=== PATIENT | female | born 2000 | race Two or more races ===

== ENCOUNTER 2023-06-30 11:42 | Emergency (ER) | payer OTHER ==
[~2023-06-30] VITALS: Ht 157.5 cm; Wt 61.8 kg
[2023-06-30 12:55] VITALS: BP 122/87; PULSE 71; RESP 18; O2SAT 99
[2023-06-30] MEDS ORDERED: NAPR-746 PO (13:14)
[2023-06-30 13:31] VITALS: TEMP 97.6
[2023-06-30] MEDS: IBUPROFEN 600 MG TAB PO ONE (13:31)
== END 2023-06-30 13:32 | disposition home or self-care (01) ==
LOC: ER 11:42
DX: M77.8 Other enthesopathies, not elsewhere classified (principal); X50.0XXA Overexertion from strenuous movement or load, initial encounter; Y93.89 Activity, other specified; Y92.89 Other specified places as the place of occurrence of the external cause; Y99.8 Other external cause status
CPT/HCPCS: 29125